=== PATIENT | female | born 1975 | race Two or more races ===

== ENCOUNTER 2019-10-21 20:20 | Emergency (ER) | payer SELFPAY ==
[~2019-10-21] VITALS: Ht 152.4 cm; Wt 63.6 kg
[~2019-10-21 20:20] MED LIST: CHLO25CA10 PO; RES15C PO
[2019-10-21] MEDS ORDERED: mupirocin 2% ointment 22GM TP ONE (21:05)
[2019-10-21 21:53] VITALS: BP 133/95
== END 2019-10-21 21:54 ==
LOC: ER 20:21
DX: S91.011A Laceration without foreign body, right ankle, initial encounter (principal); T23.212A Burn of second degree of left thumb (nail), initial encounter; Z88.0 Allergy status to penicillin; Z88.1 Allergy status to other antibiotic agents; Z88.8 Allergy status to other drugs, medicaments and biological substances; V49.88XA Car occupant (driver) (passenger) injured in other specified transport accidents, initial encounter; Y93.89 Activity, other specified; Y92.413 State road as the place of occurrence of the external cause; Y99.9 Unspecified external cause status
CPT/HCPCS: 73090; 99283